=== PATIENT | female | born 1975 | race American Indian/Alaskan Native ===

== ENCOUNTER 2016-12-20 15:49 | Outpatient (CLI) | payer OTHER ==
--- NOTE | 2016-12-20 16:23 | XRay Report ---
XRAY CHEST TWO VIEWS: 12/20/16 15:49:00 CLINICAL: Positive PPD COMPARISON: None FINDINGS: Normal heart and pulmonary vasculature. The lungs are normally expanded and clear.Mild degenerative changes in the spine. IMPRESSION: No acute cardiopulmonary process.No signs of acute or chronic TB.
== END 2016-12-20 15:50 | disposition home or self-care (01) ==
LOC: SPVIMAG 15:49
PROVIDERS: ATTEND Internal Medicine
DX: R76.11 Nonspecific reaction to tuberculin skin test without active tuberculosis (principal); M47.899 Other spondylosis, site unspecified
CPT/HCPCS: 71020